=== PATIENT | female | born 1975 | race Caucasian/White ===

== ENCOUNTER 2016-08-09 12:18 | Emergency (ER) | payer MEDICAID ==
[2016-08-09 12:37] VITALS: BP 122/94; PULSE 103; RESP 16; TEMP 99.3; O2SAT 94
[2016-08-09] MEDS ORDERED: DEXAMETHASONE 4 MG TAB PO ONE (12:50)
[2016-08-09] MEDS ORDERED: OXYMETAZOLINE 30 ML NASAL SPRAY EACHNARE ONE (12:50)
--- NOTE | 2016-08-09 12:53 | EDPHY ---
H & P Stated Complaint: cough-productive,sinus pressure ,st,bilat ear pain,denies fever Time Seen by Provider: 08/09/16 12:47 HPI/ROS: CHIEF COMPLAINT: Sinus congestion, sore throat HISTORY OF PRESENT ILLNESS: The patient is a 41-year-old healthy female from the rehab center with several of her friends who are also ill with similar symptoms. She complains of a sore throat, sinus congestion. She has not had fevers or shortness of breath. Dry cough. No GI symptoms. No significant past medical history. REVIEW OF SYSTEMS: Constitutional: denies: chills, fever, recent illness, recent injury EENTM: See HPI Respiratory: See HPI Cardiac: denies: chest pain, irregular heart rate, lightheadedness, palpitations Gastrointestinal/Abdominal: denies: abdominal pain, diarrhea, nausea, vomiting, blood streaked stools Genitourinary: denies: dysuria, frequency, hematuria, pain Musculoskeletal: denies: joint pain, muscle pain Skin: denies: lesions, rash, jaundice, bruising Neurological: denies: headache, numbness, paresthesia, tingling, dizziness, weakness Hematologic/Lymphatic: denies: blood clots, easy bleeding, easy bruising Immunologic/allergic: denies: HIV/AIDS, transplant EXAM: GENERAL: Well-appearing, well-nourished and in no acute distress. HEAD: Atraumatic, normocephalic. EYES: Pupils equal round and reactive to light, extraocular movements intact, sclera anicteric, conjunctiva are normal. ENT: TMs normal, nares patent, oropharynx with minimal erythema without exudates. Moist mucous membranes. NECK: Normal range of motion, supple without lymphadenopathy or JVD. LUNGS: Breath sounds clear to auscultation bilaterally and equal. No wheezes rales or rhonchi. HEART: Regular rate and rhythm without murmurs, rubs or gallops. ABDOMEN: Soft, nontender, normoactive bowel sounds. No guarding, no rebound. No masses appreciated. BACK: No CVA tenderness, no spinal tenderness, step-offs or deformities EXTREMITIES: Normal range of motion, no pitting or edema. No clubbing or cyanosis. NEUROLOGICAL: Cranial nerves II through XII grossly intact. Normal speech, normal gait. 5/5 strength, normal movement in all extremities, normal sensation PSYCH: Normal mood, normal affect. SKIN: Warm, dry, normal turgor, no visible rashes or lesions. Source: Patient Exam Limitations: No limitations - Personal History LMP (Females 10-55): IUD In Place - Medical/Surgical History Hx Asthma: No Hx Chronic Respiratory Disease: No Hx Diabetes: No Hx Cardiac Disease: No Hx Renal Disease: No Hx Cirrhosis: No Hx Alcoholism: No Hx HIV/AIDS: No Hx Splenectomy or Spleen Trauma: No Other PMH: Med hx-anxiety/depression. [id number] inguinal - Family History Significant Family History: No pertinent family hx - Social History Smoking Status: Heavy smoker Alcohol Use: Sober Drug Use: None Constitutional: Initial Vital Signs Temperature (C) 37.4 C 08/09/16 12:32 Heart Rate 103 H 08/09/16 12:32 Respiratory Rate 16 08/09/16 12:32 Blood Pressure 122/94 H 08/09/16 12:32 O2 Sat (%) 94 08/09/16 12:32 O2 Delivery Mode Room Air Allergies/Adverse Reactions: No Known Allergies Allergy (Verified 08/09/16 12:31) Home Medications: Medication Instructions Recorded Claritin 08/09/16 Clonidine 08/09/16 Gabapentin 08/09/16 Paxil 08/09/16 Trazodone HCl 08/09/16 Medical Decision Making ED Course/Re-evaluation: The patient symptoms are consistent with a viral upper respiratory tract infection. I will treat her with decongestants and steroids for symptom relief. We discussed follow-up and indications for returning. She is happy with this and declines further workup or testing. Differential Diagnosis: Partial list of the Differential diagnosis considered include but were not limited to; viral URI, sinusitis, otitis media, strep throat, influenza and although unlikely based on the history and physical exam, I also considered meningitis, sepsis. I discussed these differential diagnoses and the plan with the patient as well as the usual and expected course. The patient understands that the diagnosis is provisional and that in medicine we are not always correct and that further workup is often warranted. Usual and customary warnings were given. All of the patient's questions were answered. The patient was instructed to return to the emergency department should the symptoms at all worsen or return, otherwise to followup with the physician as we discussed. - Data Points Medications Given: Discontinued Medications Dexamethasone (Decadron) 10 mg PO EDNOW ONE Stop: 08/09/16 12:51 Last Admin: 08/09/16 12:57 Dose: 10 mg Oxymetazoline HCl (Afrin Nasal [place]) 2 sprays EACHNARE EDNOW ONE Stop: 08/09/16 12:51 Last Admin: 08/09/16 13:02 Dose: Not Given Departure - Departure Disposition: Home, Routine, Self-Care Clinical Impression: Upper respiratory tract infection Qualifiers: URI type: unspecified viral URI Qualified Code(s): J06.9 - Acute upper respiratory infection, unspecified Condition: Fair Instructions: Upper Respiratory Infection (ED) Referrals: Armando Upton MD [Medical Doctor] - As per Instructions
== END 2016-08-09 12:58 | disposition home or self-care (01) ==
LOC: CED 12:18
DX: J06.9 Acute upper respiratory infection, unspecified (principal); F17.200 Nicotine dependence, unspecified, uncomplicated

== ENCOUNTER 2017-02-28 09:28 | Inpatient (IN) | payer MEDICAID ==
--- NOTE | 2017-02-28 10:02 | EDPHY ---
H & P Stated Complaint: States left 3rd finger erythema,swelling and warmth since yesterday. Time Seen by Provider: 02/28/17 09:34 HPI/ROS: Chief Complaint: Left hand pain HPI: 42-year-old woman presenting complaining of pain in her left middle finger and hand since yesterday. Patient has noticed significant swelling warmth and tenderness last night. She has a history of IV drug abuse but has been clean for several months. 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 She denies any fevers or chills. No lightheadedness. No nausea or vomiting. ROS: 10 point Review of Systems is negative except as noted in the HPI. PMH: Chronic pain, IV drug use, MRSA bacteremia Social History: Former IV drug use Family History: non-contributory Physical Exam: Gen: Awake, Alert, No Distress HEENT: Nose: no rhinorrhea Eyes: PERRLA, EOMI Mouth: Moist mucosa Neck: Supple, no JVD Chest: nontender, lungs clear to auscultation Heart: S1, S2 normal, no murmur Abd: Soft, non-tender, no guarding Back: no CVA tenderness, no midline tenderness Ext: Left hand: She has got significant swelling of her proximal left middle finger. It is held in flexion. She has pain with passive extension. She also has pain along the flexor tendon sheath. Finger is erythematous with streaking up the palm of her hand. Skin: Per hand exam Neuro: CN II-XII intact, Sensation grossly intact, Strength 5/5 in bilateral upper and lower extremities - Personal History LMP (Females 10-55): IUD In Place Current Tetanus Diphtheria and Acellular Pertussis (TDAP): Unsure - Medical/Surgical History Hx Asthma: No Hx Chronic Respiratory Disease: No Hx Diabetes: No Hx Cardiac Disease: No Hx Renal Disease: No Hx Cirrhosis: No Hx Alcoholism: No Hx HIV/AIDS: No Hx Splenectomy or Spleen Trauma: No Other PMH: Med hx-anxiety/depression,seasonal allergies. [id number] inguinal - Social History Smoking Status: Heavy smoker Constitutional: Initial Vital Signs Temperature (C) 36.9 C 02/28/17 09:36 Heart Rate 94 02/28/17 09:36 Respiratory Rate 16 02/28/17 09:36 Blood Pressure 129/95 H 02/28/17 09:36 O2 Sat (%) 97 02/28/17 09:36 O2 Delivery Mode Room Air Allergies/Adverse Reactions: No Known Allergies Allergy (Verified 02/28/17 09:34) Home Medications: Medication Instructions Recorded Claritin 08/09/16 Clonidine 08/09/16 Gabapentin 08/09/16 Paxil 08/09/16 Trazodone HCl 08/09/16 Medical Decision Making Procedures: Procedure note: Femoral vein vena puncture for blood draw Indication: Poor IV access requiring a PICC line but no blood. Patient was prepped with chlorhexidine. Under sterile technique including drape, sterile gloves the femoral artery was palpated. An 18 gauge needle was directed just medial to the femoral artery. Venous blood which was nonpulsatile was aspirated , total of 35 mL. Needle was removed and pressure was held. A sterile dressing was placed. Patient tolerated the procedure well. There were no complications. Procedure was performed by myself. ED Course/Re-evaluation: 42-year-old woman with flexor tenosynovitis. She has all 4 of Knaval signs. I have discussed with Dr. Natanael Javire, hand surgeon. He will see the patient in the hospital. He does not want any antibiotics until he can get definitive cultures done. Patient will be admitted to the hospitalist service. I have paged the hospitalist awaiting the call. Discussed with hospitalist Fauzia Ramires, patient will be admitted under Dr. Gandhi. Departure - Departure Disposition: [facility] Acute Clinical Impression: Flexor tenosynovitis of finger Condition: Fair
[2017-02-28 12:01] LABS: ANION GAP 16 mEq/L (8-16); CALCIUM 9.2 mg/dL (8.5-10.4); CARBON DIOXIDE 21 mEq/l (22-31); CHLORIDE 103 mEq/L (97-110); CREATININE 0.4 mg/dL (0.6-1.0); GLOMERULAR FILTRATION RATE > 60; GLUCOSE 109 mg/dL (70-100); SODIUM 140 mEq/L (134-144)
[2017-02-28 12:02] LABS: POTASSIUM 4.4 mEq/L (3.5-5.2)
[2017-02-28 12:11] LABS: BILIRUBIN,TOTAL 0.8 mg/dL (0.1-1.4); BILIRUBIN-CONJUGATED 0.5 mg/dL (0.0-0.5); BILIRUBIN-UNCONJUGATED 0.3 mg/dL (0.0-1.1); TOTAL PROTEIN 6.8 g/dL (6.3-8.2)
[2017-02-28 12:15] LABS: % IMMATURE GRANULYOCYTES 0.3 % (0.0-1.1); ABSOLUTE IMMATURE GRANULOCYTES 0.04 10^3/uL (0.00-0.10); ADD DIFF? NO; ADD MORPH? NO; ADD SCAN? NO; ATYPICAL LYMPHOCYTE FLAG 0 (0-99); FRAGMENT RBC FLAG 0 (0-99); HEMATOCRIT 38.4 % (38.0-47.0); HEMOGLOBIN 12.7 g/dL (12.6-16.3); LEFT SHIFT FLG 0 (0-99); LIPEMIA HEMOLYSIS FLAG 80 (0-99); MEAN CELL HEMOGLOBIN 26.2 pg (27.9-34.1); MEAN CELL HEMOGLOBIN CONCENTR. 33.1 g/dL (32.4-36.7); MEAN CELL VOLUME 79.2 fL (81.5-99.8); MEAN PLATELET VOLUME 9.9 fL (8.7-11.7); PLATELET CLUMPS FLAG 0 (0-99); PLATELET COUNT 312 10^3/uL (150-400); RED BLOOD CELL COUNT 4.85 10^6/uL (4.18-5.33); RED CELL DISTRIBUTION WIDTH 13.7 % (11.5-15.2)
[2017-02-28 12:31] LABS: ALANINE AMINOTRANSFERASE 59 IU/L (9-52); ALBUMIN 3.6 g/dL (3.5-5.0); ALKALINE PHOSPHATASE 96 IU/L (38-126); ANION GAP 15 mEq/L (8-16); ASPARTATE AMINOTRANSFERASE 59 IU/L (14-46); BILIRUBIN,TOTAL 0.5 mg/dL (0.1-1.4); BILIRUBIN-CONJUGATED 0.2 mg/dL (0.0-0.5); BILIRUBIN-UNCONJUGATED 0.3 mg/dL (0.0-1.1); CALCIUM 9.2 mg/dL (8.5-10.4); CARBON DIOXIDE 25 mEq/l (22-31); CHLORIDE 100 mEq/L (97-110); CREATININE 0.5 mg/dL (0.6-1.0); GLOMERULAR FILTRATION RATE > 60; GLUCOSE 104 mg/dL (70-100); POTASSIUM 4.1 mEq/L (3.5-5.2); SODIUM 140 mEq/L (134-144); TOTAL PROTEIN 6.4 g/dL (6.3-8.2)
[2017-02-28] MEDS ORDERED: ONDANSETRON DISINTEGRATING 4 MG TAB PO PRN (14:06)
[2017-02-28] MEDS ORDERED: IBUPROFEN 200 MG TAB PO PRN (14:06)
[2017-02-28] MEDS ORDERED: ONDANSETRON 4 MG/2 ML VIAL IVP PRN ×2 (14:06→17:36)
[2017-02-28] MEDS ORDERED: ALTEPLASE 2 MG VIAL IVP PRN ×2 (14:11→15:07)
--- NOTE | 2017-02-28 14:44 | GHP ---
[f rep st] HISTORY AND PHYSICAL DATE OF ADMISSION: 02/28/2017 CHIEF COMPLAINT: Left hand pain. HISTORY OF PRESENT ILLNESS: The patient is a 42-year-old female, presenting to the [facility] with complaints of left middle finger and hand pain since 1 day prior. The patient states that she noted significant swelling and warmth last evening and it became progressively worse upon awaken ing today. She has a history of IV drug abuse and she is currently in a rehabilitation detox program . She states that she has been clean for several months. She has a history of MRSA bacteremia and s trep infection of her cervical spine. She denies any fevers, sweats or chills. She denies any dizzi ness, lightheadedness or shortness of breath. She denies any nausea, vomiting, diarrhea. She denies any other complaints other than this left handed pain with tenderness and swelling. REVIEW OF SYSTEMS: A comprehensive 10-point review of systems is negative, other than noted in the H PI. PAST MEDICAL HISTORY: Chronic pain, IV drug abuse, MRSA bacteremia, strep infection of her cervical spine, seizure disorder. SOCIAL HISTORY: The patient is in a drug rehabilitation program, should avoid benzodiazepines as wel l as narcotics. She states she does not use any drugs, alcohol. The patient is a heavy tobacco user . FAMILY HISTORY: Reviewed and noncontributory. PHYSICAL EXAMINATION: GENERAL: The patient is alert. VITAL SIGNS: Afebrile at 37.2, pulse is 100, respiratory rate is 18, blood pressure is 136/91. She is saturating 95% on room air. I have seen a nd evaluated the patient. HEENT: Normocephalic, atraumatic. Mucosal membranes are moist. There ar e multiple scabs across the patient's face. NECK: Supple with no JVD noted. LUNGS: Clear to auscu ltation bilaterally. There are no rhonchi or wheezes noted. CARDIOVASCULAR: Regular rate and rhythm . No gallop or murmur appreciated. ABDOMEN: Bowel sounds are positive. Soft and nontender. There is no guarding or rigidity noted. BACK: Without CVA tenderness. No midline tenderness. EXTREMITI ES: Left hand has significant swelling of her proximal left middle finger. She has pain with passiv e extension. She has pain along the flexor tendon sheath. All other extremities are within normal l imits with no clubbing or cyanosis appreciated. SKIN: Without rashes. She has multiple areas of sc abbing over the entire body. NEUROLOGICAL: The patient is grossly intact. She has 5/5 strength tete aterally upper and lower extremities. PAST SURGICAL HISTORY: Left inguinal hernia repair. ALLERGIES: None. HOME MEDICATIONS: Clonidine, gabapentin, Paxil, trazodone. LABORATORY EVALUATION: White count of 14. ASSESSMENT AND PLAN: The patient is a 42-year-old female with complaints of left hand pain. 1. Left hand infection. The patient has potentially flexor tenosynovitis. She will be consulted on by Dr. Natanael Javier of Surgery. I anticipate the patient may be taken for surgical intervention. She has been notified of this. Antibiotics have been held until further cultures can be obtained. Denise mayorga cultures are pending. 2. Pain. I have ordered Toradol for the patient at this time as she is in a drug rehabilitation pro gram that does not allow her to take benzodiazepines or narcotics. We will continue to assist in thi s process and attempt to avoid these medications unless absolutely necessary. 3. History of IV drug abuse. The patient has a history of MRSA as well as a strep spine infection. I have ordered her a PICC line at this time as IV access is unable to be obtained. 4. History of seizure disorder. I suspect this is secondary to the patient's drug use and potential withdrawal. She is on gabapentin and has not had seizures for several years she states. 5. Deep venous thrombosis prophylaxis. She is low risk for this and will be held prior to surgical intervention. 6. Disposition. The patient will be admitted to inpatient status given need for surgical interventi on and likely IV antibiotic therapy. Changes in the patient's status will be done as needed througho ut the patient's hospital course. /[id number]/MODL
[2017-02-28] MEDS ORDERED: BUPIVACAINE 0.25% 30 ML SDV ONE (15:13)
[2017-02-28] MEDS ORDERED: BACITRACIN 50,000 UNITS/10 ML SYR IRR ONE (15:13)
[2017-02-28] MEDS ORDERED: LR 1,000 ML IV ONE (15:14)
[2017-02-28] MEDS ORDERED: LIDOCAINE 1% 2 ML INJ ID PRN (15:14)
[2017-02-28] MEDS ORDERED: MIDAZOLAM 2 MG/2 ML VIAL ONE (16:31)
[2017-02-28] MEDS: VANCOMYCIN HCL/NORMAL SALINE 250 ML IV SCH (16:32)
[2017-02-28] MEDS ORDERED: PROPOFOL 200 MG/20 ML VIAL ONE (16:32)
[2017-02-28] MEDS ORDERED: fentaNYL 100 MCG/2 ML INJ ONE ×3 (16:32→17:38)
--- NOTE | 2017-02-28 16:40 | PDANEPAE ---
ANE History of Present Illness left hand 3rd digit infection; h/o IVDA ANE Past Medical History - Cardiovascular History Hx Hypertension: No Hx Arrhythmias: No Hx Chest Pain: No Hx Coronary Artery / Peripheral Vascular Disease: No Hx CHF / Valvular Disease: No Hx Palpitations: No - Pulmonary History Hx COPD: No Hx Asthma/Reactive Airway Disease: No Hx Recent Upper Respiratory Infection: No Hx Oxygen in Use at Home: No Hx Sleep Apnea: No - Endocrine History Hx Diabetes: No Obesity: no - Neurological & Psychiatric Hx Hx Neurological and Psychiatric Disorders: Yes ANE Review of Systems Review of systems is: negative Review of Systems: - Exercise capacity Exercise capacity: >=4 METS ANE Patient History - Allergies Allergies/Adverse Reactions: No Known Allergies Allergy (Verified 02/28/17 09:34) - Home Medications Home medications: home medication list seen and reviewed Home Medications: Acetaminophen [Tylenol 325mg (*)] 650 mg PO BID PRN 02/28/17 [Last Taken ] Gabapentin [Neurontin] 600 mg PO TID 02/28/17 [Last Taken 02/28/17 07:00] Ibuprofen [Motrin (*)] 800 mg PO TID PRN 02/28/17 [Last Taken 02/28/17 07:00] Loratadine [Claritin 10 mg] 10 mg PO DAILY 02/28/17 [Last Taken 02/28/17 07:00] Multivitamins [Multivitamin (*)] 1 each PO DAILY 02/28/17 [Last Taken 02/28/17 07:00] PARoxetine HCL [Paxil 30mg (*)] 30 mg PO HS 02/28/17 [Last Taken 02/27/17] Rizatriptan Benzoate [Maxalt] 5 mg PO DAILY PRN 02/28/17 [Last Taken 02/24/17] clonIDINE [Catapres (*)] 0.1 mg PO TID PRN 02/28/17 [Last Taken 02/27/17] traZODone [traZODone 150MG (*)] 150 mg PO HS 02/28/17 [Last Taken 02/27/17] - Anes Hx Anes Hx: no prior problems - Smoking Hx Smoking Status: Heavy smoker ANE Labs/Vital Signs - Labs Result Diagrams: 02/28/17 12:03 02/28/17 12:03 - Vital Signs Blood Pressure: 164/98 Heart Rate: 66 Respiratory Rate: 18 O2 Sat (%): 96 Height: 157.48 cm Weight: 49.895 kg ANE Physical Exam - Airway Neck exam: FROM Mallampati Score: Class 1 Mouth exam: normal dental/mouth exam - Pulmonary Pulmonary: no respiratory distress - Cardiovascular Cardiovascular: regular rate and rhythym - ASA Status ASA Status: II ANE Anesthesia Plan Anesthesia Plan: GA w LMA
[2017-02-28] MEDS ORDERED: MIDAZOLAM 2 MG/2 ML VIAL IVP ONE (16:42)
[2017-02-28] MEDS ORDERED: LIDOCAINE 2% 5 ML SDV ONE (16:44)
[2017-02-28] MEDS ORDERED: ONDANSETRON 4 MG/2 ML VIAL ONE (16:44)
[2017-02-28] MEDS ORDERED: DEXAMETHASONE 4 MG/ML VIAL ONE (16:44)
--- NOTE | 2017-02-28 17:04 | SOAPPROG ---
SOAP Progress Note Assessment/Plan: Assessment: Plan: 02/28/17 17:02 Significant dactylitis with 4 knavel signs left long finger. Plan for urgent I + D. I halted IV ABX in preop in effort to obtain reliable cultures in OR. Will restart IV Vanco after cultures taken. JGR Objective: Vital Signs Temp Pulse Resp BP Pulse Ox 37.8 C 66 18 164/98 H 96 02/28/17 16:20 02/28/17 16:40 02/28/17 16:40 02/28/17 16:40 02/28/17 16:40 Laboratory Results 02/28/17 12:03 02/28/17 12:03 ICD10 Worksheet Patient Problems: Problems Problem Status Onset Flexor tenosynovitis of finger Acute
[2017-02-28] MEDS ORDERED: ALBUTEROL 3 ML DEYVIAL IH PRN (17:36)
[2017-02-28] MEDS ORDERED: ACETAMINOPHEN 500 MG TAB PO PRN (17:36)
[2017-02-28] MEDS ORDERED: HYDROmorphONE/DILAUDID 1 MG/ML INJ IVP PRN (17:36)
[2017-02-28] MEDS ORDERED: DEXAMETHASONE 4 MG/ML VIAL IVP PRN (17:36)
[2017-02-28] MEDS ORDERED: fentaNYL 100 MCG/2 ML INJ IVP PRN ×2 (17:36→17:42)
[2017-02-28] MEDS ORDERED: NALOXONE HCL 0.4 MG/ML INJ IVP PRN (17:36)
[2017-02-28] MEDS ORDERED: OXYCODONE/APAP 5/325 TAB PO PRN (17:36)
[2017-02-28] MEDS ORDERED: HYDROCODONE/APAP 5/325 TAB PO PRN (17:36)
[2017-02-28] MEDS ORDERED: LR 500 ML IV PRN (17:36)
[2017-02-28] MEDS ORDERED: KETOROLAC 30 MG/1 ML SDV ONE (17:49)
--- NOTE | 2017-02-28 18:15 | POSTANESTH ---
Post Anesthetic Evaluation Cardiovascular Status: Normal, Stable Respiratory Status: Normal, Stable Level of Consciousness/Mental Status: Can Participate in Eval Pain Control: Adequate, Prn Tx Ordered Nausea/Vomiting Control: Adequate, Prn Tx Ordered Complications Possibly Related to Anesthesia: None Noted
--- NOTE | 2017-02-28 18:25 | POSTOPPROG ---
Post Op Note Date of Operation: 02/28/17 Surgeon: Natanael Javier Surveillance Systems Engineer: None Anesthesia: LMA Pre-op Diagnosis: Septic flexor tendon tenosynovitis Left III Post-op Diagnosis: Same plus infection up to carpal tunnel Procedure: I + D finger flexor sheath and palm and carpal tunnel Inf/Abcess present in the surg proc area at time of surgery?: Yes Depth: Deep Incisional (Fascial) EBL: Minimal Drains: Other
--- NOTE | 2017-02-28 18:28 | SOAPPROG ---
SOAP Progress Note Assessment/Plan: Assessment: Post op Plan:IV abx Change dressing on Saturday am and pull drain then. 02/28/17 17:02 02/28/17 18:26 02/28/17 18:28 Objective: Vital Signs Temp Pulse Resp BP Pulse Ox 37.8 C 66 18 164/98 H 96 02/28/17 16:20 02/28/17 16:40 02/28/17 16:40 02/28/17 16:40 02/28/17 16:40 Laboratory Results 02/28/17 12:03 02/28/17 12:03 Thick yellow creamy puss encountered throughout Left long finger flexor sheath up to mid palm and through carpal tunnel. Drain left in. ICD10 Worksheet Patient Problems: Problems Problem Status Onset Flexor tenosynovitis of finger Acute
[2017-02-28] MEDS: ACETAMINOPHEN 325 MG TAB PO PRN (20:08)
[2017-02-28] MEDS ORDERED: IBUPROFEN 800 MG TAB PO PRN (20:49)
[2017-02-28] MEDS ORDERED: RIZATRIPTAN BENZOATE 5 MG PO PRN (20:49)
[2017-02-28] MEDS ORDERED: ACETAMINOPHEN 325 MG TAB PO PRN (20:49)
[2017-02-28] MEDS: GABAPENTIN 300 MG CAP PO SCH (21:16)
--- NOTE | 2017-02-28 21:20 | GCON ---
[f rep st] CONSULTATION INFECTIOUS DISEASE CONSULTATION. DATE OF CONSULTATION: 02/28/2017 REASON FOR CONSULTATION: Left hand cellulitis and tenosynovitis. HISTORY OF PRESENT ILLNESS: 42-year-old woman, left hand dominant, with a past medical history of IV drug use complicated by MRSA endocarditis earlier this year, unknown valve, and a more remote history of group A strep infection of her neck requiring debridement. She was in her usual state of health until approximately 1 day ago when she started noticing increased swelling of her left hand that became progressively more painful and red and she presented to the emergency room for further evaluation. She denies specific injury to this hand and does not inject IVD in her hands. Patient was found to have a markedly swollen hand with difficulty in flexing her middle finger with concerns of tenosynovitis. Blood cultures were obtained and white count was elevated. Orthopedic hand surgeon was consulted and plans debridement later this afternoon. Patient has been in a drug rehab program and was clean for 10 months until recently when she resumed use of IV heroin and methadone. She was using up to the time of admission. Patient desires that this not be disclosed to her family or the drug rehab program. REVIEW OF SYSTEMS: A complete 10-point review of systems was performed and is negative except as mentioned in the HPI. Specifically, patient denies fevers and chills. She did describe some left scapular pain. PAST MEDICAL HISTORY: 1. Polysubstance abuse including IVDU 2. 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 Received 6 weeks IV antibiotics. 3. Strep infection of her cervical spine, status post debridement approximately 3-4 years ago. Received 8 weeks IV antibiotics 4. Seizure disorder. SOCIAL HISTORY: She is participating in a drug rehab program. Drugs of choice meth and heroine. She buys clean needles at drug store. She smokes cigarettes. Reports negative HIV and hep C screens in the past. Heavy tobacco use. She moved to [place] in June 2016. She is working at [employer]. FAMILY HISTORY: Reviewed and noncontributory. ALLERGIES: NKDA. MEDICATIONS: Claritin 10 mg daily, gabapentin 600 mg 3 times daily, Paxil 30 mg daily, trazodone 150 mg daily, multivitamin once daily, clonidine 0.1 three times daily as needed, Tylenol as needed, and ibuprofen as needed for pain. PHYSICAL EXAM: VITAL SIGNS: Blood pressure 136/91, heart rate is 89-100, respiratory rate 18, saturation 95% on room air, temperature 37.2. GENERAL: This is a pleasant woman sitting in bed. She is somewhat tearful. HEENT: No conjunctival hemorrhages. Oropharynx: Fair dentition. Moist mucous membranes. NECK: Supple. No lymphadenopathy. CARDIOVASCULAR: Regular rate and rhythm. No murmur was detected; borderline tachycardia. CHEST: Clear to auscultation bilaterally. ABDOMEN: Soft, nontender. Bowel sounds are present. EXTREMITIES : No clubbing, cyanosis, or edema of LE. She has a marked erythema and edema of her entire left hand, most prominent on her middle finger with significant limited range of motion and tenderness to palpation. Erythema was creeping up her medial wrist. No crepitus was detected. Pulses were 2+. No associated axillary lymphadenopathy. NEUROLOGICALLY: She is alert and oriented x4. Moving all 4 extremities equally. PSYCH: She was cooperative, sad affect associated with discussion regarding her break in abstinence. LABORATORY: White count 14,000, hematocrit 38, platelets of 317. Creatinine 0.5, AST 59, ALT 59, alkaline phosphatase 96, albumin 3.6, total bilirubin 0.5. Blood cultures were collected and are pending. IMAGING: None performed. ASSESSMENT AND PLAN: 42-year-old woman with a history of IV drug use, who has had multiple infectious complications related to IV drug use, now presents with left hand cellulitis and tenosynovitis of the 3rd left digit. She is left-hand dominant. No residual cardiac murmur noted today or peripheral stigmata of endocarditis. 1. Discussion regarding importance of abstinence from IV drug use and this being her 3rd complication from IV drug use. Agreed that we will not disclose her IV drug use to her family or her drug rehab program (c/w HIPPA!). 2. Screen HIV, hepatitis C, hepatitis B. 3. Start vancomycin 1 g IV q.12 with a history of MRSA. This will also cover streptococcal infection, which is also within the differential. 4. Appreciate ortho consult. 5. Monitor scapular pain Thank you for this consultation. We will continue to follow on a daily basis. Time 55 min >50% time spent with education and counseling regarding IVDU, plans for treating her severe L hand infection and potential need for prolonged hospitalization. /[id number]/MODL MTDD
--- NOTE | 2017-02-28 21:50 | GCON ---
[f rep st] CONSULTATION CHIEF COMPLAINT: Left hand pain, swelling, and redness. HISTORY OF PRESENT ILLNESS: Patient is a 42-year-old, left-hand dominant female who presented the [facility] ER with increased pain, swelling, and redness that started in the left middle finger and has spread throughout her hand for the last day. She notes that the symptoms are progressively getting worse. She does have a history of IV drug abuse and is currently in a rehab center with a detox program. S he also has a history of MRSA bacteremia and the strep infection of her cervical spine. At this time , she denies any fever, chills, nausea, vomiting, diarrhea. She denies any other orthopedic complain ts. She was transferred to [facility]. PAST MEDICAL HISTORY: Chronic pain, IV drug use, MRSA bacteremia, strep infection of the cervical sp ine, and seizure disorder. PAST SURGICAL HISTORY: She was operated on her cervical spine for the strep infection. MEDICATIONS: Clonidine, gabapentin, Paxil, trazodone, Claritin. ALLERGIES: No known drug allergies. FAMILY HISTORY: Noncontributory. REVIEW OF SYSTEMS: A 10-point review was done. Negative for any other complaints, concerns, or hist ory. PHYSICAL EXAMINATION: VITALS: Afebrile. Vital signs are stable. GENERAL: Pleasant, NAD. HEENT: NC/AT. EOMI. PERRLA. Ears and nares patent without discharge. Oropharynx is clear. NECK: Nonte nder to palpation, full range of motion. MUSCULOSKELETAL: Exam of the left hand, there is significa nt swelling and erythema over the left middle finger, extending throughout the dorsum of the hand. S he does have pain with passive extension and flexion of the fingers. She has pain to palpation along the 3rd/middle finger flexor tendon sheath. Normal sensation to light touch in the left upper extre mity. is present in the left upper extremity. SKIN: Warm, dry, and intact in the left u pper extremity. NEUROLOGIC: Nonfocal. No deficits noted. PSYCHIATRIC: Alert and oriented x3. Ap propriate mood and affect. IMPRESSION: Left middle finger/3rd flexor tenosynovitis. PLAN: The patient was seen and examined, and it was discussed with the patient that she would requir e surgery, which would include an irrigation and debridement of the left 3rd/middle finger flexor ten don sheath, to be done by Dr. Javier today, 02/28/2017. All the risks, benefits, complications were exp lained to the patient and consent was obtained. The consent was placed in the patient's chart. Anti biotics will be held until cultures are taken by Dr. Javier in the OR. All questions were answered to the patient's satisfaction. /[id number]/MODL
[2017-03-01] MEDS: VANCOMYCIN HCL/NORMAL SALINE 250 ML IV SCH ×2 (03:33→15:50)
--- NOTE | 2017-03-01 04:27 | GOP ---
[f rep st] OPERATIVE REPORT DATE OF OPERATION: 02/28/2017 SURGEON: Natanael Javier MD PREOPERATIVE DIAGNOSIS: Flexor tenosynovitis, left long finger. POSTOPERATIVE DIAGNOSIS: 1. Flexor tendon tenosynovitis, left long finger. 2. Mid palmar bursal infection, left palm. 3. Continuous infection into the carpal tunnel, left wrist. PROCEDURE PERFORMED: FINDINGS: I initially started washing out her finger, which the flexor tendon sheath was filled with thick pus. There was much greater pus proximally than there was distally. When I moved proximal to the flexor tendon sheath, there was still pus along the long finger flexor tendons. I opened the mi d palm and found additional pus in the mid palmar space that was exclusively surrounding the long fin abimbola flexor tendons and not the adjacent index finger or ring finger. There was continued pus proxima l to the mid palm. As such, I opened the antebrachial fascia in the distal forearm and connected all 4 of these wounds. There was no pus identified proximal to the wrist flexion crease but there was t hick creamy pus within the carpal tunnel, predominantly surrounding the long finger profundus flexor tendon. INDICATIONS: The patient is a 42-year-old woman with a history of MRSA infections in the past with a lso a history of IV drug use. She has been in a treatment facility and in a longterm house setting re cently. She developed swelling and pain in her finger and was seen at the [facility] earlier today where th larry identified suppurative flexor tenosynovitis. She is brought to the operating room for an I and D procedure. DESCRIPTION OF PROCEDURE: After routinely checking the patient's identification and consent and the successful induction of LMA general anesthetic, the patient's left upper extremity was prepped and dr aped in usual standard fashion. I exsanguinated the limb loosely with an Esmarch wrap and used eleva tion to further exsanguinate the limb. A pneumatic tourniquet previously placed about the proximal l eft arm was inflated to 250 mmHg. An oblique incision in the palmar flexion crease of the long finge r MP joint was carried sharply through the skin. It was spread bluntly through the subcutaneous laye r and dissected down to the level of the A1 mil. With A1 mil exposed, I incised this with thic k purulent fluid identified that was creamy yellow in color. I immediately sent this for cultures in cluding Gram stain. The patient was then restarted on the vancomycin that had been stopped in preop hold immediately prior to her surgery. I dissected distally into the flexor tendon sheath. I then o pened the flexor tendon sheath distally at the DIP flexion crease with a transverse incision. With t his opened, I was able to connect the 2 with a pediatric feeding tube and irrigate between the 2, pul ling the feeding tube back at 10 mm intervals. Initially I had all the drainage coming from the dist al wound and in the middle the drainage was coming from both the distal and proximal wound and then u ltimately just at the proximal wound. As much as there was pus identified proximally, I then opened the mid palmar space with a longitudinal incision in the thenar flexion crease just distal to the tra nsverse carpal ligament. I dissected sharply through skin and then bluntly through the subcutaneous layer. I identified the superficial palmar arch and the decussation of the median nerve. I dissecte d down to the long finger, index finger and ring finger flexor tendons. There was a halo of thickene d synovial tissue around the long finger. When I opened this, there was the same thick creamy yellow pus identified. I evacuated this and then debrided and then passed the feeding tube from the mid pa lmar wound to the distal palmar wound and performed a similar procedure where I pulled the pediatric feeding tube back with thorough irrigation until it ran clear. I dissected proximal to the mid myers r space, identified pus within the carpal tunnel. I consequently made a transverse incision in the w rist flexion crease, dissecting sharply through the skin and bluntly through the subcutaneous layer. I dissected down to the level of the antebrachial fascia and then incised this longitudinally. Iden tified pus distally but not proximal to this location. I again passed the feeding tube in a similar fashion as previously and irrigated this thoroughly. I then passed the feeding tube leaving loop fro m the most proximal wound to most distal wound, leaving loops out of the skin at the 2 intermediate w ounds. I loosely sutured these wounds closed and left the feeding tube in place to act for egress fo r continued drainage. The wound was cleansed and 0.25% Marcaine plus epinephrine were infiltrated in the carpal tunnel for postoperative comfort and also as a digital block for postoperative comfort. A sterile bulky dressing was applied and the patient was reversed from anesthetic and extubated in th e operating room. She was transferred to the recovery room in excellent condition. She tolerated th e procedure well. There were no complications. /[id number]/MODL
--- NOTE | 2017-03-01 06:57 | SOAPPROG ---
SOAP Progress Note Assessment/Plan: Assessment/Plan: L hand III finger tenosynovitis, palmar and carpal tunnel abscess s/p I&D of L III flexor tendon sheath, palm and carpal tunnel -Cont abx, Vanco, as ordered, cultures pending -Cont current pain management, encourage PO as tolerated -Cont to encourage ice and elevation -Limited use of L hand -Drain and dressings in place, will change dressing and d/c drain morning of 03/02/2017 -Will likely need abx mangement on d/c, CM to follow 03/01/17 06:54 Subjective: Pt seen at bedside, awoken for exam. She denies any significant pain at this time. She states she is tolerating her diet and medications well. She denies any valle, sob, cp, f/c/n/v, abd pain, post calf pain bilat, or any new onset n/t. We have discussed leaving the dressing in place, drain intact, with likely dressing change and drain d/c tomorrow morning. She has no additional concerns or complaints at this time. Objective: Vital Signs Temp Pulse Resp BP Pulse Ox 36.6 C 68 16 116/64 91 L 03/01/17 04:06 03/01/17 04:06 03/01/17 04:06 03/01/17 04:06 03/01/17 04:06 Microbiology 02/28/17 17:24 Gram Stain - Final Other - Eswab 02/28/17 17:24 Mycobacterial Smear (PALOMA) - Final Other - Eswab Mycobacterial Culture - Final Laboratory Results 02/28/17 12:03 02/28/17 12:03 02/28/17 03/01/17 03/02/17 05:59 05:59 05:59 Intake Total 530 Output Total 705 Balance -175 Pt seen at bedside, A&Ox3, appropriate mood and affect. Pleasant and cooperative with exam. VSS, afebrile. Exam of the LUE reveals intact post operative dressings, clean and dry. No surrounding erythema, calor, discharge or induration noted. Forearm compartment are supple. Elbow exam is benign, full ROM noted. Upper arm compartments are supple. Post calves NTTP, no palpable vascular cords, neg Lonny's bilat. DNVI BLE. ICD10 Worksheet Patient Problems: Problems Problem Status Onset Flexor tenosynovitis of finger Acute
[2017-03-01 08:02] LABS: PHENCYCLIDINE URINE BCH < 6 ng/ml (NEGATIVE); PHENCYCLIDINE URINE BCH NEGATIVE (NEGATIVE); TETRAHYDROCANNABINOL URINE < 5 ng/mL (NEGATIVE); TETRAHYDROCANNABINOL URINE NEGATIVE (NEGATIVE)
[2017-03-01] MEDS: KETOROLAC 30 MG/1 ML SDV IVP PRN ×3 (08:36→22:09)
[2017-03-01] MEDS: GABAPENTIN 300 MG CAP PO SCH ×3 (08:36→21:57)
[2017-03-01] MEDS: MULTIVITAMINS 1 EACH TAB PO SCH (08:37)
[2017-03-01] MEDS: CETIRIZINE 10 MG TAB PO SCH (08:37)
[2017-03-01 08:53] LABS: % IMMATURE GRANULYOCYTES 1.2 % (0.0-1.1); ABSOLUTE IMMATURE GRANULOCYTES 0.14 10^3/uL (0.00-0.10); ADD DIFF? NO; ADD MORPH? NO; ADD SCAN? NO; ATYPICAL LYMPHOCYTE FLAG 0 (0-99); FRAGMENT RBC FLAG 0 (0-99); LEFT SHIFT FLG 0 (0-99); LIPEMIA HEMOLYSIS FLAG 80 (0-99); MEAN CELL HEMOGLOBIN 26.3 pg (27.9-34.1); MEAN CELL HEMOGLOBIN CONCENTR. 32.4 g/dL (32.4-36.7); MEAN PLATELET VOLUME 10.3 fL (8.7-11.7); PLATELET CLUMPS FLAG 10 (0-99); PLATELET COUNT 284 10^3/uL (150-400); RED BLOOD CELL COUNT 4.57 10^6/uL (4.18-5.33); RED CELL DISTRIBUTION WIDTH 14.3 % (11.5-15.2)
[2017-03-01 09:31] LABS: ALANINE AMINOTRANSFERASE 56 IU/L (9-52); ALBUMIN 3.2 g/dL (3.5-5.0); ALKALINE PHOSPHATASE 81 IU/L (38-126); ANION GAP 8 mEq/L (8-16); ASPARTATE AMINOTRANSFERASE 40 IU/L (14-46); BILIRUBIN,TOTAL 0.4 mg/dL (0.1-1.4); CALCIUM 9.1 mg/dL (8.5-10.4); CARBON DIOXIDE 28 mEq/l (22-31); CHLORIDE 107 mEq/L (97-110); CREATININE 0.5 mg/dL (0.6-1.0); GLOMERULAR FILTRATION RATE > 60; GLUCOSE 122 mg/dL (70-100); POTASSIUM 4.4 mEq/L (3.5-5.2); SODIUM 143 mEq/L (134-144); TOTAL PROTEIN 5.9 g/dL (6.3-8.2)
--- NOTE | 2017-03-01 10:44 | PCMIDPN ---
Assessment/Plan: 1. Left hand cellulitis/palmar abscess with tenosynovitis status post washout: I called the microbiology lab. They are concerned about the presence of gram- negative rods. Will add Ertapenem pending ID/speciation. Spoke with patient about how she uses needles. She states that her needles are always clean, but admits to using spit to clean blood off the needles when she misses the vein, and uses spit to clean off the missed injection site. She also admits to me that she injected black tar heroin into her left hand. She is very tearful about this, and understands that it is important for her to disclose this to her providers while she is in the hospital. She gave me permission to inform , so that he could help manage her withdrawal symptoms. For now, she is diaphoretic, but no diarrhea or vomiting. She repeated to me that she does not want her parents or drug rehabilitation facility (she would not disclose which drug rehabilitation facility) to know if her relapse. 2. Miscellaneous: Patient informed that hepatitis-C antibody and HIV testing negative. Hepatitis B surface antibody pending, surface antigen negative. Also of note, she cannot recall her last tetanus booster, therefore will administer Tdap in right arm today. She prefers a flu vaccine prior to discharge. (She will most likely be going to a snf facility to complete treatment). Subjective: Long conversation with patient today about drug use. Primary surgical dressing still in place in her left hand. Operative note read. I did call the microbiology lab. They are concerned about the presence of gram-negative rods. Patient cannot recall her last tetanus booster and has not received a flu vaccine this year. She was uncomfortable disclosing to me which drug rehabilitation program she is involved with here in [place]. She states that her parents are paying for this. Objective: Vancomycin 1 g IV q.12 hours day 1 Afebrile Vital Signs Temp Pulse Resp BP Pulse Ox 36.7 C 66 16 111/69 92 03/01/17 07:24 03/01/17 07:24 03/01/17 07:24 03/01/17 07:24 03/01/17 07:24 Microbiology 02/28/17 17:24 Gram Stain - Final Other - Eswab 02/28/17 17:24 Mycobacterial Smear (PALOMA) - Final Other - Eswab Mycobacterial Culture - Final Laboratory Results 03/01/17 08:45 03/01/17 08:45 02/28/17 03/01/17 03/02/17 05:59 05:59 05:59 Intake Total 530 Output Total 705 Balance -175 Blood cultures x2 are pending Hand cultures with 2+ PMNs, culture pending. - Physical Exam General Appearance: alert, no apparent distress EENT: other (Multiple scabbed areas on her face where the patient has picked herself.) Respiratory: lungs clear Cardiac/Chest: regular rate, rhythm, No systolic murmur Extremities: other (Left hand/forearm with primary surgical dressing in place. I did not take this down.) Abdomen: non-tender, soft Skin: other (Facial scabs as outlined above with the patient has picked herself. No other obvious abscesses, or sites of infection visible.) ICD10 Worksheet Patient Problems: Problems Problem Status Onset Flexor tenosynovitis of finger Acute
[2017-03-01] MEDS ORDERED: TDAP ADULT 0.5 ML INJ (BOOSTRIX) IM ONE (11:00)
--- NOTE | 2017-03-01 11:10 | PDMN ---
Medical Necessity Medical necessity: est los>2mn for L hand septic flexor tendon tenosynovitis; requires surgical intervention, follow cx's for abx choice; hx MRSA bacteremia , cervical spine strep infection, IV drug abuse currently in rehab program, sz disorder; per order and H&P 02/28/17
[2017-03-01] MEDS: ERTAPENEM 1 GM VIAL IVP SCH (11:16)
[2017-03-01] MEDS ORDERED: diphenhydrAMINE 50 MG CAP PO PRN (14:21)
--- NOTE | 2017-03-01 16:38 | ASMTCMCOM ---
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 Pt uses IV drugs so is not safe to d/c to the community. Chart review indicates pt is in a drug rehabilitation program paid for by parents (at this time unknown which program), is a person diagnosed w depression and anxiety, is new to [employer] and works at [employer]. Spoke w pt about d/c options (father was present w pt permission) and pt seems hesitant to commit to 30 day SNF stay but will consider it. CM will follow up with pt tomorrow. Medicaid SNF will require ULTC and unknown if [facility] will approve a Medicaid SNF solely for IV antibiotic need, pt has no therapy ordered. D/c plan of care: TBD based off how long pt requires IV antibiotics, willingness to commit to 30 day SNF, and if [facility] approves Medicaid SNF. Date Signed: 03/01/2017 04:38 PM Electronically Signed By:NAVEEN Collins
--- NOTE | 2017-03-01 17:46 | HOSPPROG ---
Hospitalist Progress Note Assessment/Plan: Assessment: 42-year-old female presents with acute tenosynovitis and bacteremia in the setting of active IV drug use Plan: 1. Tenosynovitis. Acute, new problem this provider, further workup indicated. Located in the left 3rd digit with underlying abscess in the carpal tunnel -postop day [address] Javier, appreciate ongoing surgical care -treat pain with IV Toradol, avoid opiates and benzodiazepines given patient's rehab conditions -Gram stain currently demonstrating white blood cells, continue to monitor culture -continue monitor white blood cell count -discussed with Dr. Lian Cates, we will add Invanz given that the lab reports there is possible gram-negative harmeet and patient reports that she likes her needles, also continue IV vancomycin given her history of staph and strep -patient requires extended course of IV antibiotics, discussed this with patient , she is amenable to going to a half-way facility so that she is able to be in a monitored setting while she receives IV antibiotics, and she is able to avoid IV drug use, discussed with case management 2. Bacteremia. Contacted by lab the patient has Gram-positive cocci in blood cultures from presentation, will monitor for speciation and sensitivity -timing of repeat cultures per Infectious Disease -will get a transthoracic echocardiogram 3. IV drug use and acute opiate withdrawal. Patient has requested that no outside parties received information regarding her recent IV drug use and relapse, and we will adhere to this per HIPAA -the patient has disclose that she has recently used drugs intravenously and she has begun to experience acute opiate withdrawal, including sweats and anxiety -provide as needed Benadryl, Tylenol, clonidine -CIWA score is inappropriate for opiate withdrawal, avoid benzodiazepines as the patient is not permitted to use opiates or benzodiazepines per her contract with her outpatient drug rehab program -HIV test and hep C test negative Diet. Regular Prophylaxis. Low risk, SCDs Code. Full Disposition. Anticipated discharge is uncertain, pending negative cultures and further workup as outlined above. High complexity patient, high risk of worsening morbidity and/or mortality from the issues as outlined above. Subjective: Patient reports pain in left upper extremity is tolerable Objective: Vital Signs Temp Pulse Resp BP Pulse Ox 36.8 C 87 18 139/76 H 91 L 03/01/17 15:54 03/01/17 15:54 03/01/17 15:54 03/01/17 15:54 03/01/17 15:54 Microbiology 02/28/17 17:24 Gram Stain - Final Other - Eswab 02/28/17 17:24 Mycobacterial Smear (PALOMA) - Final Other - Eswab Mycobacterial Culture - Final Laboratory Results 03/01/17 08:45 03/01/17 08:45 02/28/17 03/01/17 03/02/17 05:59 05:59 05:59 Intake Total 530 Output Total 705 Balance -175 - Physical Exam Constitutional: no apparent distress, chronically ill appearing, uncomfortable, unkempt Cardiovascular: regular rate and rhythym, systolic murmur (1/6 at sternum and apex), No irregularly irregular, No tachycardia, No edema Respiratory: no respiratory distress, no rales or rhonchi, clear to auscultation Gastrointestinal: normoactive bowel sounds, soft, non-tender abdomen, no palpable masses, No distension Skin: other (Left hand wrapped, left thumb without any erythema) Neurologic: AAOx3, sensation intact bilaterally, No weakness (Motor 5/5 left thumb) Psychiatric: not anxious, not encephalopathic, flat affect, No agitated ICD10 Worksheet Patient Problems: Problems Problem Status Onset Flexor tenosynovitis of finger Acute
[2017-03-02] MEDS: VANCOMYCIN HCL/NORMAL SALINE 250 ML IV SCH ×2 (03:33→17:09)
[2017-03-02 04:56] LABS: % IMMATURE GRANULYOCYTES 0.3 % (0.0-1.1); ABSOLUTE IMMATURE GRANULOCYTES 0.03 10^3/uL (0.00-0.10); ADD DIFF? NO; ADD MORPH? NO; ADD SCAN? NO; ATYPICAL LYMPHOCYTE FLAG 0 (0-99); FRAGMENT RBC FLAG 0 (0-99); HEMATOCRIT 35.3 % (38.0-47.0); HEMOGLOBIN 11.2 g/dL (12.6-16.3); LEFT SHIFT FLG 0 (0-99); LIPEMIA HEMOLYSIS FLAG 80 (0-99); MEAN CELL HEMOGLOBIN 26.4 pg (27.9-34.1); MEAN CELL HEMOGLOBIN CONCENTR. 31.7 g/dL (32.4-36.7); MEAN CELL VOLUME 83.3 fL (81.5-99.8); MEAN PLATELET VOLUME 10.6 fL (8.7-11.7); PLATELET CLUMPS FLAG 10 (0-99); PLATELET COUNT 253 10^3/uL (150-400); RED BLOOD CELL COUNT 4.24 10^6/uL (4.18-5.33); RED CELL DISTRIBUTION WIDTH 14.5 % (11.5-15.2)
[2017-03-02 05:19] LABS: ANION GAP 9 mEq/L (8-16); CALCIUM 8.5 mg/dL (8.5-10.4); CARBON DIOXIDE 27 mEq/l (22-31); CHLORIDE 111 mEq/L (97-110); CREATININE 0.7 mg/dL (0.6-1.0); GLOMERULAR FILTRATION RATE > 60; GLUCOSE 96 mg/dL (70-100); POTASSIUM 3.7 mEq/L (3.5-5.2); SODIUM 147 mEq/L (134-144)
[2017-03-02] MEDS: KETOROLAC 30 MG/1 ML SDV IVP PRN (05:32)
--- NOTE | 2017-03-02 09:11 | HOSPPROG ---
Hospitalist Progress Note Assessment/Plan: # L 3rd finger tenosynovitis s/p I&D with infection to carpal tunnel - she had injected heroin into this hand recently - haemophilus parainfluenza from operative cx - cont abx per ID, invanz and vanc for now # BCx+ with coag-neg staph - suspect contaminant but would be covered by vanc # recent IVDU - requests that this be kept private, not shared with family or rehab facility - no severe w/d, cont clonidine, add robaxin prn for myalgias # KIM - (SCr from 0.4 to 0.7) stop NSAIDs for now, encourage PO, recheck tomorrow # hypernatremia - encourage free H2O intake Subjective: eating well; pain in hand mproving; c/o sweats and myalgias Objective: Vital Signs Temp Pulse Resp BP Pulse Ox 36.8 C 81 16 108/66 92 03/02/17 07:33 03/02/17 07:33 03/02/17 07:33 03/02/17 07:33 03/02/17 07:33 Microbiology 02/28/17 12:03 Blood Panel (PCR) - Final Blood Staph Coagulase Negative 02/28/17 17:24 Gram Stain - Final Other - Eswab 02/28/17 17:24 Mycobacterial Smear (PALOMA) - Final Other - Eswab Mycobacterial Culture - Final Laboratory Results 03/02/17 04:43 03/02/17 04:43 03/01/17 03/02/17 03/03/17 05:59 05:59 05:59 Intake Total 530 300 Output Total 705 300 Balance -175 0 chart reviewed - Physical Exam Constitutional: no apparent distress, appears nourished Cardiovascular: regular rate and rhythym, no murmur, rub, or gallop Respiratory: no respiratory distress, no rales or rhonchi, clear to auscultation Gastrointestinal: normoactive bowel sounds, soft, non-tender abdomen, no palpable masses Musculoskeletal: other (L hand in gauze) ICD10 Worksheet Patient Problems: Problems Problem Status Onset Flexor tenosynovitis of finger Acute
[2017-03-02] MEDS: ERTAPENEM 1 GM VIAL IVP SCH (09:54)
[2017-03-02] MEDS: CETIRIZINE 10 MG TAB PO SCH (09:55)
[2017-03-02] MEDS: MULTIVITAMINS 1 EACH TAB PO SCH (09:58)
[2017-03-02] MEDS: GABAPENTIN 300 MG CAP PO SCH ×3 (10:01→22:05)
--- NOTE | 2017-03-02 10:11 | SOAPPROG ---
SOAP Progress Note Assessment/Plan: Assessment: Improving Plan:IV abx Begin PT for aggressive hand rehab. 02/28/17 17:02 02/28/17 18:26 02/28/17 18:28 03/02/17 10:10 Subjective: Less pain today Objective: Vital Signs Temp Pulse Resp BP Pulse Ox 36.8 C 81 16 108/66 92 03/02/17 07:33 03/02/17 07:33 03/02/17 07:33 03/02/17 07:33 03/02/17 07:33 Microbiology 02/28/17 12:03 Blood Panel (PCR) - Final Blood Staph Coagulase Negative 02/28/17 17:24 Gram Stain - Final Other - Eswab 02/28/17 17:24 Mycobacterial Smear (PALOMA) - Final Other - Eswab Mycobacterial Culture - Final Laboratory Results 03/02/17 04:43 03/02/17 04:43 03/01/17 03/02/17 03/03/17 05:59 05:59 05:59 Intake Total 530 300 Output Total 705 300 Balance -175 0 Left hand: Swelling reduced. Able to F/E all digits slightly. Erythema is reduced. I pulled drains today. CSM intact all finger tips. ICD10 Worksheet Patient Problems: Problems Problem Status Onset Flexor tenosynovitis of finger Acute
--- NOTE | 2017-03-02 12:26 | PCMIDPN ---
Assessment/Plan: 1. Left hand cellulitis/palmar abscess with tenosynovitis status post washout: So far, culture is growing h. parainfluenza, consistent with her history of using saliva during injection practices. Will allow cultures to mature before final antibiotic decisions are made. That being said, there is a chance she can be treated with an oral quinolone, such as Moxifloxacin (for its additional anaerobic activity) moving forward, as a PICC line is suboptimal in this patient for obvious reasons. 2. Miscellaneous: Tetanus booster given yesterday. Will administer flu vaccine before discharge. Hepatitis-B surface antibody pending, other tests are negative. 3. Blood culture with gram-positive cocci in clusters: This is a contaminant with coagulase-negative Staph. Subjective: Her father is present in the room. Asked him to step out. The patient then disclosed to me that she had told her father that she relapsed. Tearful today, but overall feeling better. The drain in her hand was removed. Objective: Vancomycin 1 g IV 12 hr day 2 Ertapenem 1 g IV daily day 2 Afebrile Vital Signs Temp Pulse Resp BP Pulse Ox 37.1 C 79 16 135/77 H 93 03/02/17 11:23 03/02/17 11:23 03/02/17 11:23 03/02/17 11:23 03/02/17 11:23 Microbiology 02/28/17 12:03 Blood Panel (PCR) - Final Blood Staph Coagulase Negative 02/28/17 17:24 Gram Stain - Final Other - Eswab 02/28/17 17:24 Mycobacterial Smear (AP[facility]OMA) - Final Other - Eswab Mycobacterial Culture - Final Laboratory Results 03/02/17 04:43 03/02/17 04:43 03/01/17 03/02/17 03/03/17 05:59 05:59 05:59 Intake Total 530 300 Output Total 705 300 Balance -175 0 Blood cultures with 1/4 bottles coagulase-negative Staph Hand cultures are growing H. parainfluenza - Physical Exam General Appearance: alert, no apparent distress Extremities: other (Left hand with significant overall swelling, but minimal cellulitic component. No active drainage from 3 separate small incisions.) Skin: No embolic lesions ICD10 Worksheet Patient Problems: Problems Problem Status Onset Flexor tenosynovitis of finger Acute
--- NOTE | 2017-03-02 13:50 | ASMTCMCOM ---
CM Note CM Note Notes: Cultures need to mature and according to ID MD Cates there is a chance pt can d/c on oral antibiotics. D/c plan of care: TBD based on final antibiotic need. If can d/c on orals then can d/c to community and if IV antibiotics then CM needs to start Medicaid SNF process. Date Signed: 03/02/2017 01:49 PM Electronically Signed By:NAVEEN Collins
[2017-03-02 15:22] LABS: HEPATITIS Bs Ab QUANT <5.0 mIU/mL
--- NOTE | 2017-03-02 16:26 | ASMTCMCOM ---
CM Note CM Note Notes: Pt has signed release for [facility] , RN Lainey states [facility] needs a call prior to d/c as they are assessing if pt can return due to relapse. CM to follow. Date Signed: 03/02/2017 04:26 PM Electronically Signed By:NAVEEN Collins
[2017-03-02] MEDS: ACETAMINOPHEN 325 MG TAB PO PRN (22:05)
[2017-03-02] MEDS: METHOCARBAMOL 750 MG TAB PO PRN (22:05)
[2017-03-03] MEDS: VANCOMYCIN HCL/NORMAL SALINE 250 ML IV SCH (03:34)
[2017-03-03 04:01] LABS: % IMMATURE GRANULYOCYTES 0.4 % (0.0-1.1); ABSOLUTE IMMATURE GRANULOCYTES 0.03 10^3/uL (0.00-0.10); ADD DIFF? NO; ADD MORPH? NO; ADD SCAN? NO; ATYPICAL LYMPHOCYTE FLAG 10 (0-99); FRAGMENT RBC FLAG 0 (0-99); HEMATOCRIT 36.9 % (38.0-47.0); HEMOGLOBIN 11.9 g/dL (12.6-16.3); LEFT SHIFT FLG 0 (0-99); LIPEMIA HEMOLYSIS FLAG 80 (0-99); MEAN CELL HEMOGLOBIN 26.4 pg (27.9-34.1); MEAN CELL HEMOGLOBIN CONCENTR. 32.2 g/dL (32.4-36.7); PLATELET CLUMPS FLAG 0 (0-99); PLATELET COUNT 250 10^3/uL (150-400); RED CELL DISTRIBUTION WIDTH 14.6 % (11.5-15.2)
[2017-03-03 04:07] LABS: ANION GAP 7 mEq/L (8-16); CALCIUM 8.5 mg/dL (8.5-10.4); CARBON DIOXIDE 28 mEq/l (22-31); CHLORIDE 110 mEq/L (97-110); CREATININE 0.7 mg/dL (0.6-1.0); GLOMERULAR FILTRATION RATE > 60; GLUCOSE 87 mg/dL (70-100); POTASSIUM 4.1 mEq/L (3.5-5.2); SODIUM 145 mEq/L (134-144)
--- NOTE | 2017-03-03 08:49 | HOSPPROG ---
Hospitalist Progress Note Assessment/Plan: # L 3rd finger tenosynovitis s/p I&D with infection to carpal tunnel - she had injected heroin into this hand recently - haemophilus parainfluenza from operative cx - cont abx per ID, invanz and vanc for now - would prefer apap for pain control rather than narcotics or nsaids # BCx+ with coag-neg staph - likely contaminant # recent IVDU - she initially requesteed this be kept quiet, but has now informed her father - no severe w/d, cont clonidine, add robaxin prn for myalgias # KIM - (SCr from 0.4 to 0.7) stop NSAIDs for now, encourage PO, recheck tomorrow # hypernatremia - better today - encourage free H2O intake Subjective: complains of hand pain Objective: Vital Signs Temp Pulse Resp BP Pulse Ox 37.1 C 80 16 163/85 H 90 L 03/03/17 07:22 03/03/17 07:22 03/03/17 07:22 03/03/17 07:22 03/03/17 07:22 Microbiology 02/28/17 17:24 Gram Stain - Final Other - Eswab 02/28/17 17:24 Mycobacterial Smear (PALOMA) - Final Other - Eswab Mycobacterial Culture - Final 02/28/17 12:03 Blood Panel (PCR) - Final Blood Staph Coagulase Negative Laboratory Results 03/03/17 03:30 03/03/17 03:30 03/02/17 03/03/17 03/04/17 05:59 05:59 05:59 Intake Total 300 865 Output Total 300 250 Balance 0 615 - Physical Exam Constitutional: no apparent distress, appears nourished Cardiovascular: regular rate and rhythym, no murmur, rub, or gallop Respiratory: no respiratory distress, no rales or rhonchi, clear to auscultation Gastrointestinal: normoactive bowel sounds, soft, non-tender abdomen, no palpable masses Musculoskeletal: other (L hand wrapped in gauze) ICD10 Worksheet Patient Problems: Problems Problem Status Onset Flexor tenosynovitis of finger Acute
[2017-03-03] MEDS: CETIRIZINE 10 MG TAB PO SCH (09:14)
[2017-03-03] MEDS: ERTAPENEM 1 GM VIAL IVP SCH (09:14)
[2017-03-03] MEDS: GABAPENTIN 300 MG CAP PO SCH ×3 (09:14→21:02)
[2017-03-03] MEDS: MULTIVITAMINS 1 EACH TAB PO SCH (09:14)
[2017-03-03] MEDS: ACETAMINOPHEN 500 MG TAB PO PRN ×2 (09:27→17:14)
--- NOTE | 2017-03-03 10:51 | PCMIDPN ---
Assessment/Plan: 1. Left hand cellulitis/palmar abscess with tenosynovitis status post washout: Cultures only show H. parainfluenza with no evidence of Staph aureus or streptococci. Will discontinue vancomycin and continue ertapenem alone. As per my prior note, when she is ready for discharge can likely transition to oral quinolone (consider moxifloxacin given its additional anaerobic activity). Do not want keep PICC line in as outlined previously. 2. Miscellaneous: Hepatitis-B surface antibody negative, but patient believes she has been tested in the past. Will give booster today and will need hepatitis-B surface antibody checked in a month to ensure response. Received Tdap. Also needs flu vaccine prior to discharge. 3. Blood culture with gram-positive cocci in clusters: This is a contaminant with coagulase-negative Staph. Subjective: In good spirits. Has stopped picking her face. Withdrawal symptoms under control. No diarrhea. Hand is still quite swollen, but overall starting to feel better. Objective: Vancomycin 1 g IV q.12 hours day 3 Ertapenem 1 g daily day 3 T-max 37.2degrees Vital Signs Temp Pulse Resp BP Pulse Ox 37.1 C 80 16 140/82 H 90 L 03/03/17 07:22 03/03/17 07:22 03/03/17 07:22 03/03/17 09:20 03/03/17 07:22 Microbiology 02/28/17 17:24 Gram Stain - Final Other - Eswab 02/28/17 17:24 Mycobacterial Smear (PALOMA) - Final Other - Eswab Mycobacterial Culture - Final 02/28/17 12:03 Blood Panel (PCR) - Final Blood Staph Coagulase Negative Laboratory Results 03/03/17 03:30 03/03/17 03:30 03/02/17 03/03/17 03/04/17 05:59 05:59 05:59 Intake Total 300 865 Output Total 300 250 Balance 0 615 Hand cultures with H. parainfluenza Blood culture with 1/4 bottles coagulase-negative Staphylococcus Hepatitis-B surface antibody negative - Physical Exam General Appearance: alert, no apparent distress EENT: No thrush Respiratory: lungs clear Extremities: other (Left hand is still quite swollen, but no obvious cellulitic component. 3 sutured incisions are well drainage. She is able to flex and extend her wrist, but still has difficulty making a fist given swelling. No tingling or numbness.) ICD10 Worksheet Patient Problems: Problems Problem Status Onset Flexor tenosynovitis of finger Acute
[2017-03-03] MEDS ORDERED: HEPATITIS B VIRUS VACCINE-PF 20 MCG/ML VIAL IM ONE (11:00)
--- NOTE | 2017-03-03 11:17 | SOAPPROG ---
SOAP Progress Note Assessment/Plan: Assessment/Plan: L hand III finger tenosynovitis, palmar and carpal tunnel abscess s/p I&D of L III flexor tendon sheath, palm and carpal tunnel, POD#3 -Cont abx per ID as ordered, cultures reveal H. influenza -Cont current pain management, encourage PO as tolerated -Cont to encourage ice and elevation -Cont PT/OT, encourage ROM -Drain removed yesterday -D/c dependent on ID abx recommendation, disp, f/u w/ Dr. Javier 10-14 days post operatively 03/03/17 11:15 Subjective: Pt seen at bedside. She denies any significant pain at this time, though nurses report max of 5/10. She states she is tolerating her diet and medications well. She denies any valle, sob, cp, f/c/n/v, abd pain, post calf pain bilat, or any new onset n/t. We have discussed follow up. She has no additional concerns or complaints at this time. Objective: Vital Signs Temp Pulse Resp BP Pulse Ox 37.1 C 80 16 140/82 H 90 L 03/03/17 07:22 03/03/17 07:22 03/03/17 07:22 03/03/17 09:20 03/03/17 07:22 Microbiology 02/28/17 17:24 Gram Stain - Final Other - Eswab 02/28/17 17:24 Mycobacterial Smear (PALOMA) - Final Other - Eswab Mycobacterial Culture - Final 02/28/17 12:03 Blood Panel (PCR) - Final Blood Staph Coagulase Negative Laboratory Results 03/03/17 03:30 03/03/17 03:30 03/02/17 03/03/17 03/04/17 05:59 05:59 05:59 Intake Total 300 865 Output Total 300 250 Balance 0 615 Pt seen at bedside, A&Ox3, appropriate mood and affect. Pleasant and cooperative with exam. VSS, afebrile. Exam of the LUE reveals intact dressings , clean and dry. Intact sutures are noted, surgical incision sites appear to be healing well with no surrounding erythema, calor, discharge or induration noted. Forearm compartment are supple. Elbow exam is benign, full ROM noted. Upper arm compartments are supple. Pt is limited in light composite fist formation, but is able to flex and ext wrist w/out significant pain. Post calves NTTP, no palpable vascular cords, neg Lonny's bilat. DNVI BLE. ICD10 Worksheet Patient Problems: Problems Problem Status Onset Flexor tenosynovitis of finger Acute
[2017-03-03] MEDS ORDERED: BISACODYL 10 MG SUPP PR PRN (11:20)
[2017-03-03] MEDS ORDERED: POLYETHYLENE GLYCOL 3350 17 GM PKT PO PRN (11:20)
[2017-03-03] MEDS ORDERED: LACTULOSE 20 GM/30 ML UDCUP PO PRN (11:20)
[2017-03-03] MEDS ORDERED: MAGNESIUM HYDROXIDE 30 ML UDCUP PO PRN (11:20)
[2017-03-03] MEDS: METHOCARBAMOL 750 MG TAB PO PRN (21:01)
[2017-03-03] MEDS: SENNOSIDES/DOCUSATE SODIUM TAB PO SCH (21:01)
[2017-03-04 04:24] LABS: ANION GAP 10 mEq/L (8-16); CALCIUM 8.3 mg/dL (8.5-10.4); CARBON DIOXIDE 27 mEq/l (22-31); CHLORIDE 109 mEq/L (97-110); CREATININE 0.6 mg/dL (0.6-1.0); GLOMERULAR FILTRATION RATE > 60; GLUCOSE 92 mg/dL (70-100); POTASSIUM 4.1 mEq/L (3.5-5.2); SODIUM 146 mEq/L (134-144)
--- NOTE | 2017-03-04 07:12 | SOAPPROG ---
SOAP Progress Note Assessment/Plan: Assessment/Plan: L hand III finger tenosynovitis, palmar and carpal tunnel abscess s/p I&D of L III flexor tendon sheath, palm and carpal tunnel, POD#4 -Cont abx per ID as ordered, cultures reveal H. influenza -Cont current pain management, encourage PO as tolerated -Cont to encourage ice and elevation -Cont PT/OT, encourage ROM -Drain removed yesterday -D/c dependent on dietitian consultant ID approval and medicine approval, ID abx recommendation, and CM placement -f/u w/ Dr. Javier 10-14 days post operatively 03/04/17 07:11 Subjective: Pt seen at bedside, awoken for exam. She denies any significant pain at this time. She states she is tolerating her diet and medications well. She denies any valle, sob, cp, f/c/n/v, abd pain, post calf pain bilat, or any new onset n/t. We have discussed follow up. She has no additional concerns or complaints at this time. We have discussed d/c disposition, and pt states she has not yet formed a preference. Will cont to follow. Objective: Vital Signs Temp Pulse Resp BP Pulse Ox 37.3 C 81 17 167/83 H 90 L 03/04/17 04:00 03/04/17 04:00 03/04/17 04:00 03/04/17 04:00 03/04/17 04:00 Microbiology 02/28/17 12:03 Blood Panel (PCR) - Final Blood Staph Coagulase Negative 02/28/17 17:24 Gram Stain - Final Other - Eswab Laboratory Results 03/03/17 03:30 03/04/17 03:55 03/03/17 03/04/17 03/05/17 05:59 05:59 05:59 Intake Total 865 650 Output Total 250 800 Balance 615 -150 Pt seen at bedside, awoken for exam, A&Ox3, appropriate mood and affect. Pleasant and cooperative with exam. VSS, afebrile. Exam of the LUE reveals CDI dressings. Intact sutures are noted, surgical incision sites are healing well with no surrounding erythema, calor, discharge or induration noted. Forearm compartment are supple. Elbow exam is benign, full ROM noted. Upper arm compartments supple. Pt is limited in light composite fist formation, but is able to flex and ext wrist w/out significant pain. Post calves NTTP, no palpable vascular cords, neg Lonny's bilat. DNVI BLE. ICD10 Worksheet Patient Problems: Problems Problem Status Onset Flexor tenosynovitis of finger Acute
[2017-03-04] MEDS: GABAPENTIN 300 MG CAP PO SCH ×3 (11:33→21:49)
[2017-03-04] MEDS: SENNOSIDES/DOCUSATE SODIUM TAB PO SCH ×2 (11:33→21:58)
[2017-03-04] MEDS: MULTIVITAMINS 1 EACH TAB PO SCH (11:34)
[2017-03-04] MEDS: CETIRIZINE 10 MG TAB PO SCH (11:34)
[2017-03-04] MEDS: ERTAPENEM 1 GM VIAL IVP SCH (11:35)
--- NOTE | 2017-03-04 14:51 | HOSPPROG ---
Hospitalist Progress Note Assessment/Plan: # L 3rd finger tenosynovitis s/p I&D with infection extending to carpal tunnel - she had injected heroin into this hand recently - haemophilus parainfluenza from operative cx - cont abx per ID, invanz - pain control with NSAIDs and APAP # BCx+ with coag-neg staph - likely contaminant # recent IVDU - she initially requested this be kept quiet, but has now informed her father - no severe w/d, cont clonidine, add robaxin prn for myalgias # KIM - better today; safe for toradol # hypernatremia - D5W x 1 L today Subjective: better ROM of fingers today; still painful Objective: Vital Signs Temp Pulse Resp BP Pulse Ox 36.4 C 95 18 118/88 H 98 03/04/17 11:15 03/04/17 11:15 03/04/17 11:15 03/04/17 11:15 03/04/17 11:15 Microbiology 02/28/17 17:24 Gram Stain - Final Other - Eswab 02/28/17 12:03 Blood Panel (PCR) - Final Blood Staph Coagulase Negative Laboratory Results 03/03/17 03:30 03/04/17 03:55 03/03/17 03/04/17 03/05/17 05:59 05:59 05:59 Intake Total 865 650 500 Output Total 250 800 Balance 615 -150 500 L hand edematous, no significant erythema; sutures in palm - Physical Exam Constitutional: no apparent distress, appears nourished Eyes: anicteric sclera Ears, Nose, Mouth, Throat: hearing normal Cardiovascular: No edema Genitourinary: No gomez in urethra Skin: warm, normal color Neurologic: AAOx3 Psychiatric: interacting appropriately ICD10 Worksheet Patient Problems: Problems Problem Status Onset Flexor tenosynovitis of finger Acute
[2017-03-04] MEDS ORDERED: D5W 1,000 ML IV SCH (15:00)
[2017-03-04] MEDS: KETOROLAC 15 MG/1 ML SDV IVP PRN (16:01)
--- NOTE | 2017-03-04 16:30 | ASMTCMCOM ---
CM Note CM Note Notes: Spoke with Dr. West with [facility]. Dr. West has spoken with patient's parents who are willing to help patient return to her rehab program. However, patient's therapist has to visit and determine if patient herself is ready to recommit. The current d/c plan is for patient to return to [facility] to restart her rehab program from the relapse. Kailey will contact me after she has completed her assessment to confirm. CM will follow. Date Signed: 03/04/2017 04:29 PM Electronically Signed By:Nadia Dempsey LCSW
--- NOTE | 2017-03-04 16:41 | ECHO ---
[email or web address] [address] [address] Main: [phone] Fax: Transthoracic Echocardiogram Name: YANN GIRALDO MR#: [id number] Study Date: 03/02/2017 Study Time: 10:15 AM Date of : 1975 Age: 42 year(s) Height: 157.5 cm (62 in.) Weight: 49.9 kg (110 lb.) BSA: 1.48 m2 Gender: Female Examination: Echo Indication: Image Quality: Adequate Contrast: Requested by: Jabier Dominguez BP: / Heart Rate: Rhythm: Indication: Procedure Staff Ragman: Rabia Flores Reading Physician: Jabier Dunbar Requesting Provider: Conclusions: Normal size left ventricle. No LV hypertrophy. Normal global systolic LV function. EF is 60 %. No regional wall motion abnormality. There is no mitral valve regurgitation. There is no aortic valve regurgitation. Trivial tricuspid valve regurgitation. Right side pleural effusion. Measurements: Chambers Valvular Assessment AV/MV Valvular Assessment TV/PV Normal Normal Normal Name Value Range Name Value Range Name Value Range IVSd (2D): 0.9 cm (0.6 cm-1.1 AV meanP mmHg ( - ) PV Vmax: 0.78 m/s (0.6 m/s-0.9 cm) LVOT Vmax: 0.89 m/s (0.7 m/s-1.1 m/s) LVDd (2D): 4.1 cm (3.9 cm-5.3 m/s) PV PGmax: 2 mmHg ( - ) cm) MV E Vmax: 0.70 m/s ( - ) LVDs (2D): 2.7 cm (2.1 cm-4 MV A Vmax: 0.76 m/s ( - ) cm) MV E/A: 0.92 ( - ) LVPWd (2D): 0.9 cm ( - ) MV meanP mmHg ( - ) LVEF (BP): 60 % (>=55 %) Continued Measurements: Chambers Valvular Assessment AV/MV Name Value Name Value LADs Lon.4 cm MV DecTime: 203 m/s LA Area: 8.5 cm2 MV E/E' Septal: 6.60 Patient: YANN GIRALDO Study Date: 03/02/2017 Page 1 of 2 10:15 AM TAPSE: 1.4 cm MV E/E' Lateral: 5.80 MV VTI: 19.30 cm Findings: Left Ventricle: Normal size left ventricle. No LV hypertrophy. Normal global systolic LV function. EF is 60 %. No regional wall motion abnormality. Normal diastolic LV function. Right Ventricle: Normal size right ventricle. Normal RV function. Left Atrium: The left atrium is normal in size. Right Atrium: The right atrium is normal in size. Mitral Valve: The mitral valve is normal in appearance and function. There is no mitral valve regurgitation. No mitral stenosis is present. There is no mitral valve vegetation. Aortic Valve: The aortic valve is normal in appearance and function. There is no aortic valve regurgitation. No aortic valve stenosis is present. There is no aortic valve vegetation. Tricuspid Valve: The tricuspid valve is normal in appearance and function. Trivial tricuspid valve regurgitation. No tricuspid valve vegetation. Pulmonic Valve: Pulmonary valve not well visualized. There is no pulmonic regurgitation seen. IVC: Normal size and course of the IVC. Pericardium: No pericardial effusion. Right side pleural effusion. (No Signature Object) Patient: YANN GIRALDO Study Date: 03/02/2017 Page 2 of 2 10:15 AM [id number]
--- NOTE | 2017-03-04 18:09 | PCMIDPN ---
Assessment/Plan: Assessment/Plan: * Left hand cellulitis/palmar abscess with flexor tenosynovitis status post incision and drainage: Clinically improving post incision and drainage. Operative culture showing growth of Haemophilus parainfluenza. No other organisms noted to date. Will narrow ertapenem to Unasyn based on this finding. Likely can transition to oral therapy in next 24-48 hours if continues to show clinical improvement. See Dr. Cates's note of 03/03/2017 outlining consideration for moxifloxacin. * Vaccine: Status post hepatitis B booster yesterday. Plan flu vaccine prior to discharge. * Positive blood cultures: 1/2 sets with coagulase-negative Staph consistent with contamination. 03/04/17 18:05 Subjective: Patient with persistent but decreased left hand pain. Some improved range of motion of fingers but still significant limitation in full flexion. Objective: Vital Signs Temp Pulse Resp BP Pulse Ox 36.8 C 76 16 116/87 H 94 03/04/17 15:49 03/04/17 15:49 03/04/17 15:49 03/04/17 16:52 03/04/17 15:49 Microbiology 02/28/17 12:03 Blood Panel (PCR) - Final Blood Staph Coagulase Negative 02/28/17 17:24 Gram Stain - Final Other - Eswab Laboratory Results 03/03/17 03:30 03/04/17 03:55 03/03/17 03/04/17 03/05/17 05:59 05:59 05:59 Intake Total 969 052 9952 Output Total 250 800 Balance 615 -150 1000 Ertapenem # 4 Operative cultures with growth of Haemophilus parainfluenza Blood cultures 1/2 sets coagulase-negative Staphylococcus - Physical Exam General Appearance: alert, no apparent distress EENT: No scleral icterus, No thrush, No conjunctival petechiae Respiratory: lungs clear, No respiratory distress Cardiac/Chest: regular rate, rhythm Extremities: inflammation (Left hand with residual edema dorsally; clean based incisions on palmar aspect; pain and decreased ability to fully flex or extend digits, no purulence) Abdomen: non-tender, No distended ICD10 Worksheet Patient Problems: Problems Problem Status Onset Flexor tenosynovitis of finger Acute
[2017-03-04] MEDS: METHOCARBAMOL 750 MG TAB PO PRN (21:50)
[2017-03-05 06:32] LABS: ANION GAP 10 mEq/L (8-16); CALCIUM 8.4 mg/dL (8.5-10.4); CARBON DIOXIDE 27 mEq/l (22-31); CHLORIDE 106 mEq/L (97-110); CREATININE 0.6 mg/dL (0.6-1.0); GLOMERULAR FILTRATION RATE > 60; GLUCOSE 93 mg/dL (70-100); POTASSIUM 4.5 mEq/L (3.5-5.2); SODIUM 143 mEq/L (134-144)
[2017-03-05] MEDS: KETOROLAC 15 MG/1 ML SDV IVP PRN ×2 (09:12→22:20)
[2017-03-05] MEDS: GABAPENTIN 300 MG CAP PO SCH ×3 (09:12→22:07)
[2017-03-05] MEDS: SENNOSIDES/DOCUSATE SODIUM TAB PO SCH ×2 (09:12→22:07)
[2017-03-05] MEDS: MULTIVITAMINS 1 EACH TAB PO SCH (09:12)
[2017-03-05] MEDS: CETIRIZINE 10 MG TAB PO SCH (09:12)
--- NOTE | 2017-03-05 09:37 | SOAPPROG ---
SOAP Progress Note Assessment/Plan: Assessment: Improving. Infectious process in left hand is improved significantly. Plan:IV abx convert to Oral Abx per ID PT for aggressive hand rehab. OK to D/C to organized rehab and F/U as outpatient. 02/28/17 17:02 02/28/17 18:26 02/28/17 18:28 03/02/17 10:10 03/05/17 09:37 Subjective: A lot less pain. Slept well. Objective: Vital Signs Temp Pulse Resp BP Pulse Ox 37.4 C 66 16 106/81 H 92 03/05/17 07:35 03/05/17 07:35 03/05/17 07:35 03/05/17 07:35 03/05/17 07:35 Microbiology 02/28/17 12:03 Blood Panel (PCR) - Final Blood Staph Coagulase Negative 02/28/17 17:24 Gram Stain - Final Other - Eswab Laboratory Results 03/03/17 03:30 03/05/17 Unknown 03/04/17 03/05/17 03/06/17 05:59 05:59 05:59 Intake Total 650 2000 Output Total 800 Balance -150 2000 AF Left hand: Wounds CDI, no drainage. ROM improved No tenderness along III flexor tendon sheath CSM I all left hand digits ICD10 Worksheet Patient Problems: Problems Problem Status Onset Flexor tenosynovitis of finger Acute
[2017-03-05] MEDS: AMPICILLIN/SULBACTAM 3 GM in NS 100 ML IV SCH ×3 (12:35→23:42)
--- NOTE | 2017-03-05 15:09 | ASMTCMCOM ---
CM Note CM Note Notes: Left a message for patient's therapist with [facility], Kailey Chantal @ [phone]. Awaiting her return call. CM will follow. Date Signed: 03/05/2017 03:09 PM Electronically Signed By:Nadia Dempsey LCSW
--- NOTE | 2017-03-05 15:12 | HOSPPROG ---
Hospitalist Progress Note Assessment/Plan: # L 3rd finger tenosynovitis s/p I&D with infection extending to carpal tunnel - she had injected heroin into this hand recently - haemophilus parainfluenza from operative cx - cont abx per ID, unasyn; plan to change to moxifloxacin likely tomorrow - pain control with NSAIDs and APAP # BCx+ with coag-neg staph - contaminant # recent IVDU - she initially requested this be kept quiet, but has now informed her father - no severe w/d, cont clonidine, add robaxin prn for myalgias # KIM - better today; safe for toradol # hypernatremia - resolved Subjective: no diarrhea; hand less painful; seen with her father and Dr Dyer Objective: Vital Signs Temp Pulse Resp BP Pulse Ox 36.8 C 90 16 105/67 93 03/05/17 11:47 03/05/17 11:47 03/05/17 11:47 03/05/17 11:47 03/05/17 11:47 Microbiology 02/28/17 17:24 Gram Stain - Final Other - Eswab 02/28/17 12:03 Blood Panel (PCR) - Final Blood Staph Coagulase Negative Laboratory Results 03/03/17 03:30 03/05/17 Unknown 03/04/17 03/05/17 03/06/17 05:59 05:59 05:59 Intake Total 650 2000 Output Total 800 Balance -150 1999 - Physical Exam Constitutional: no apparent distress, appears nourished Musculoskeletal: other (L hand with improved ROM; still edematous, no significant erythema) ICD10 Worksheet Patient Problems: Problems Problem Status Onset Flexor tenosynovitis of finger Acute
[2017-03-05] MEDS: ACETAMINOPHEN 500 MG TAB PO PRN (17:38)
--- NOTE | 2017-03-05 17:40 | PCMIDPN ---
Assessment/Plan: Assessment/Plan: * Left hand cellulitis/palmar abscess with flexor tenosynovitis status post incision and drainage: Continued clinical improvement. Think she will benefit from additional 24 hours of IV antibiotics with current administration of Unasyn. Likely transition to oral moxifloxacin for 2 weeks tomorrow with subsequent outpatient follow-up. Side effects of moxifloxacin including potential for tendinopathy or C difficile colitis discussed. Follow-up appointment next week scheduled and placed in discharge plan. * Vaccine: Plan flu vaccine prior to discharge. * Positive blood cultures: 1/2 sets with coagulase-negative Staph consistent with contamination. 03/05/17 17:38 03/05/17 17:39 Subjective: Patient with less left hand pain and improved range of motion of digits. Objective: Vital Signs Temp Pulse Resp BP Pulse Ox 97.8 C H 81 16 108/72 94 03/05/17 16:00 03/05/17 16:00 03/05/17 16:00 03/05/17 16:00 03/05/17 16:00 Microbiology 02/28/17 17:24 Gram Stain - Final Other - Eswab 02/28/17 12:03 Blood Panel (PCR) - Final Blood Staph Coagulase Negative Laboratory Results 03/03/17 03:30 03/05/17 Unknown 03/04/17 03/05/17 03/06/17 05:59 05:59 05:59 Intake Total 650 2000 Output Total 800 Balance -150 2000 Unasyn # 1 Antibiotics # 5 Hand cultures with growth of Haemophilus parainfluenza Blood cultures 1/2 sets coagulase-negative Staphylococcus - Physical Exam General Appearance: alert, no apparent distress Extremities: inflammation (Left hand with residual edema but decreasing with time; improved flexion and extension of digits but not fully recovered; incisions are all clean without purulence or erythema; no wrist tenderness) ICD10 Worksheet Patient Problems: Problems Problem Status Onset Flexor tenosynovitis of finger Acute
[2017-03-06] MEDS: AMPICILLIN/SULBACTAM 3 GM in NS 100 ML IV SCH ×2 (05:37→12:27)
[2017-03-06] MEDS: ACETAMINOPHEN 500 MG TAB PO PRN (06:44)
[2017-03-06] MEDS: METHOCARBAMOL 750 MG TAB PO PRN (06:44)
--- NOTE | 2017-03-06 07:49 | SOAPPROG ---
SOAP Progress Note Assessment/Plan: Assessment/Plan: Left hand III finger tenosynovitis, palmar and carpal tunnel abscess s/p I&D of L III flexor tendon sheath, palm and carpal tunnel, POD#6 Continue abx per ID as ordered, cultures reveal H. influenza Continue current pain management, encourage PO as tolerated Continue to encourage ice and elevation Continue PT/OT, encourage ROM D/c dependent on [employer] consultant ID approval and medicine approval, ID abx recommendation, and CM placement f/u w/ Dr. Javier 10-14 days post operatively Subjective: Pt states that her left hand is feeling better today and her pain is controlled. She is tolerating her diet and medications well. She denies any valle , sob, cp, f/c/n/v, abd pain, post calf pain bilat, or any new onset n/t. Ortho Stable Objective: Vital Signs Temp Pulse Resp BP Pulse Ox 36.6 C 64 14 112/67 93 03/06/17 04:00 03/06/17 04:00 03/06/17 04:00 03/06/17 04:00 03/06/17 04:00 Microbiology 02/28/17 12:03 Blood Culture - Final Blood Staphylococcus Sp Coag Neg Blood Panel (PCR) - Final Staph Coagulase Negative 02/28/17 11:37 Blood Culture - Final Blood 02/28/17 17:24 Gram Stain - Final Other - Eswab Laboratory Results 03/03/17 03:30 03/05/17 Unknown 03/05/17 03/06/17 03/07/17 05:59 05:59 05:59 Intake Total 1999 1540 Balance 1999 1540 Physical exam of the LUE reveals CDI dressings. Intact sutures are noted, surgical incision sites: no surrounding erythema, calor, discharge or induration noted. Forearm compartment are supple. Upper arm compartments supple. Pt is limited in light composite fist formation, but is able to flex and ext wrist without significant pain. DNVI BLE. ICD10 Worksheet Patient Problems: Problems Problem Status Onset Flexor tenosynovitis of finger Acute
[2017-03-06 08:31] VITALS: RESP 16
[2017-03-06] MEDS: MULTIVITAMINS 1 EACH TAB PO SCH (08:54)
[2017-03-06] MEDS: KETOROLAC 15 MG/1 ML SDV IVP PRN (08:54)
[2017-03-06] MEDS: CETIRIZINE 10 MG TAB PO SCH (08:54)
[2017-03-06] MEDS: GABAPENTIN 300 MG CAP PO SCH (08:54)
[2017-03-06] MEDS: SENNOSIDES/DOCUSATE SODIUM TAB PO SCH (08:55)
--- NOTE | 2017-03-06 11:30 | GDS ---
[f rep st] DISCHARGE SUMMARY ALL CONSULTATIONS: 1. Hand Surgery, Dr. Javier. 2. Infectious Disease. ALL DIAGNOSES: 1. Left 3rd finger tenosynovitis. 2. Recent IV drug use. 3. Acute kidney injury, mild. 4. Hypernatremia. ALL PROCEDURES: I and D of left 3rd finger showing septic flexor tendon tenosynovitis extending to t he carpal tunnel. IMPORTANT MICROBIOLOGY: 1. Haemophilus parainfluenza from operative cultures. 2. Coag-negative staph positive blood culture, likely contaminant. HOSPITAL COURSE: A 42-year-old female with a history of IV drug use presented with left 3rd finger t enosynovitis. She had been licking her needles and had injected heroin into that hand. She was I an d D's by Dr. Javier. Operative cultures grew out Haemophilus influenza, likely due to oral marcy conta mination. She has been continued on antibiotics here, most recently on intravenous Unasyn. She has been seen by Infectious Disease as well. The day of discharge, she will be changed to p.o. moxifloxa hector to complete a course of antibiotics. She will follow up with Dr. Javier early next week and Dr. Renaldo ortega on 03/12. She has been given strict return precautions. She has been given warnings on side affe cts of moxifloxacin and adverse reactions. She has been in rehab previously for substance abuse problems. She initially requested that her reha b not be notified and her dad not be notified about her relapse. However, she did inform them of thi s. They are very supportive. She is on clonidine for anxiety and gabapentin as well. She will cont inue her outpatient treatment for this. BILLING: I spent more than 30 minutes on the day of discharge coordinating care. /[id number]
[2017-03-06 12:17] VITALS: BP 118/82; PULSE 63; TEMP 98.4; O2SAT 93
[2017-03-06] MEDS ORDERED: FLU VACC QS 2017-18 (3YR+)/PF 0.5 ML SYR (FLUARIX QUAD) IM ONE (14:30)
--- NOTE | 2017-03-06 14:45 | ASDISCHSUM ---
Discharge Information Plan Status:Home with No Needs Medically Cleared to Leave: Discharge Date:03/06/2017 02:38 PM CM D/C Disposition:Home, Routine, Self-Care ADT D/C Disposition:Home, Routine, Self-Care Projected Discharge Date:03/06/2017 02:38 PM Transportation at D/C:Family Discharge Delay Reason: Follow-Up Date:03/06/2017 02:38 PM Discharge Slot: Final Diagnosis: Placement Information Patient Contact Information Contact Name:MAYA Relationship:Mother Address: Work Phone: City: [facility] Phone: State/Zip Code: Email: Financial Information Financial Class: Primary Plan Desc:[employer] [place] [place] Primary Plan Number:[id number] Secondary Plan Desc: Secondary Plan Number: Assessment Information [facility] CM Progress Note CM Note CM Note Notes: Pt had I & D of hand, likely requiring usp antibiotics. Pt uses IV drugs so is not safe to d/c to the community. Chart review indicates pt is in a drug rehabilitation program paid for by parents (at this time unknown which program), is a person diagnosed w depression and anxiety, is new to [place] and works at [employer]. Spoke w pt about d/c options (father was present w pt permission) and pt seems hesitant to commit to 30 day SNF stay but will consider it. CM will follow up with pt tomorrow. Medicaid SNF will require ULTC and unknown if [facility] will approve a Medicaid SNF solely for IV antibiotic need, pt has no therapy ordered. D/c plan of care: TBD based off how long pt requires IV antibiotics, willingness to commit to 30 day SNF, and if [facility] approves Medicaid SNF. Date Signed: 03/01/2017 04:38 PM Electronically Signed By:NAVEEN Collins [facility] CM Progress Note CM Note CM Note Notes: Cultures need to mature and according to MYRA Cates there is a chance pt can d/c on oral antibiotics. D/c plan of care: TBD based on final antibiotic need. If can d/c on orals then can d/c to community and if IV antibiotics then CM needs to start Medicaid SNF process. Date Signed: 03/02/2017 01:49 PM Electronically Signed By:NAVEEN Collins [facility] CM Progress Note CM Note CM Note Notes: Pt has signed release for [facility] Addiction treatment , LOBO Retana states [facility] needs a call prior to d/c as they are assessing if pt can return due to relapse. CM to follow. Date Signed: 03/02/2017 04:26 PM Electronically Signed By:NAVEEN Collins [facility] CM Progress Note CM Note CM Note Notes: Spoke with Dr. West with [facility]. Dr. West has spoken with patient's parents who are willing to help patient return to her rehab program. However, patient's therapist has to visit and determine if patient herself is ready to recommit. The current d/c plan is for patient to return to [facility] to restart her rehab program from the relapse. Kailey will contact me after she has completed her assessment to confirm. CM will follow. Date Signed: 03/04/2017 04:29 PM Electronically Signed By:Nadia Dempsey LCSW [facility] CM Progress Note CM Note CM Note Notes: Left a message for patient's therapist with [facility], Kailey Cornejo @ [phone]. Awaiting her return call. CM will follow. Date Signed: 03/05/2017 03:09 PM Electronically Signed By:Nadia Dempsey LCSW Case Management Discharge Plan Note Case Management Discharge Discharge Order Complete? Answers: Yes Patient to Obtain Answers: Independently Medications Transportation Arranged Answers: Family/Friends Family Notified Answers: Yes Notes: father Discharge Comments Notes: Patient will discharge to the care of her father who is transporting her back to [facility] for substance abuse treatment. I spoke with patient's father who has been in touch with [facility]. Liasons from [facility] have been in touch with patient at [facility], as well. LOBO Donaldson will go over discharge instructions with patient and her father. Date Signed: 03/06/2017 11:37 AM Electronically Signed By:Vivian Patino RN Intervention Information
== END 2017-03-06 14:38 | disposition home or self-care (01) | DRG 506 ==
LOC: CED 09:28 → CEDHOLD 10:09 → F3N 13:37
PROVIDERS: ADMIT Internal Medicine; ATTEND Internal Medicine
PROC: 02HV33Z Insertion of Infusion Device into Superior Vena Cava, Percutaneous Approach (ICD-10-PCS; 2017-02-28)
PROC: 0L980ZZ Drainage of Left Hand Tendon, Open Approach (ICD-10-PCS; principal; 2017-02-28 16:00)
PROC: 0R9 Upper Joints, Drainage (ICD-10-PCS; principal; 2017-02-28 16:00)
PROC: 0M980ZZ Drainage of Left Hand Bursa and Ligament, Open Approach (ICD-10-PCS; principal; 2017-02-28 16:00)
DX: M65.842 Other synovitis and tenosynovitis, left hand (principal); N17.9 Acute kidney failure, unspecified; E87.0 Hyperosmolality and hypernatremia; F11.10 Opioid abuse, uncomplicated; B96.3 Hemophilus influenzae [H. influenzae] as the cause of diseases classified elsewhere; Z72.0 Tobacco use; Z23 Encounter for immunization
CPT/HCPCS: 80048-PO; 80076-PO; 80307; 85025-PO; 97110-GO; 97161-GP; 97165-GO; 97535-GO; C1751; G0008; G0472; G0480; J0295; J1100; J1335; J1885; J2250; J2405; J2704; J2997; J3010; J3370

== ENCOUNTER 2017-12-01 12:55 | Emergency (ER) | payer MEDICAID ==
[2017-12-01] MEDS ORDERED: IPRATROPIUM/ALBUTEROL 3 ML DEYVIAL IH ONE (13:27)
--- NOTE | 2017-12-01 14:15 | EDPHY ---
H & P Time Seen by Provider: 12/01/17 13:05 HPI/ROS: CHIEF COMPLAINT: Sore throat HISTORY OF PRESENT ILLNESS: Patient states she has had sore throat, cough, congestion, sinus pressure and left ear pain for about 5 days. She states multiple people at work ill with similar symptoms. She denies fevers, rashes, vomiting. No significant headache or abdominal pain. No chest pain or shortness of breath. Has not tried any wzhl-kcb-crormee medications. Is a smoker. REVIEW OF SYSTEMS: Negative except per HPI. General Appearance: Alert, no distress. Eyes: Pupils equal and round no icterus HEENT: TMs normal bilaterally. Some lymphadenopathy in the cervical nodes. Oropharynx slight erythema but no exudate or swelling. Status post tonsillectomy. Respiratory: No respiratory distress. Lungs clear to auscultation bilaterally. Neurological: Awake, alert, no focal deficits. Skin: Warm and dry, no rashes. Musculoskeletal: Neck is supple nontender. Extremities are symmetrical, full range of motion, no edema. Psychiatric: Patient is oriented X 3, there is no agitation. Medical/surgical history: History IV drug use none for 9 months. Anxiety depression. Hernia surgery. Seasonal allergies. Social history: Does still smoke cigarettes. Smoking Status: Heavy smoker Constitutional: Initial Vital Signs Temperature (C) 37.2 C 12/01/17 13:05 Heart Rate 79 12/01/17 13:05 Respiratory Rate 18 12/01/17 13:05 Blood Pressure 103/87 H 12/01/17 13:05 O2 Sat (%) 95 12/01/17 13:05 O2 Delivery Mode Room Air Allergies/Adverse Reactions: No Known Allergies Allergy (Verified 12/01/17 13:03) Home Medications: Medication Instructions Recorded Ibuprofen [Motrin (*)] 800 mg PO TID PRN 02/28/17 Loratadine [Claritin 10 mg] 10 mg PO DAILY 02/28/17 Multivitamins [Multivitamin (*)] 1 each PO DAILY 02/28/17 Rizatriptan Benzoate [Maxalt] 5 mg PO DAILY PRN 02/28/17 traZODone [traZODone 150MG (*)] 150 mg PO HS 02/28/17 Gabapentin [Neurontin] 600 mg PO TID #90 tablet 03/06/17 PARoxetine HCL [Paxil 30mg (*)] 30 mg PO HS #30 tab 03/06/17 clonIDINE [Catapres (*)] 0.1 mg PO TID PRN #30 tab 03/06/17 Albuterol [Proventil Inhaler HFA 1 - 2 puffs IH Q4H #1 mdi 12/01/17 (*)] Buspar (*) 12/01/17 Gabapentin 12/01/17 Medical Decision Making Differential Diagnosis: Differential diagnosis includes but is not limited to sinusitis, ear infection, strep pharyngitis, upper respiratory infection. After evaluation no signs or concerns of bacterial infection. Did get some relief with albuterol for the cough and bronchitis symptoms. Discussed aqdg-xuc-illlssb medications in conservative treatments such as nasal saline wash and gargles. Return precautions discussed. Stable for discharge. - Data Points Medications Given: Discontinued Medications Albuterol/Ipratropium (Duoneb) 3 ml IH EDNOW ONE Stop: 12/01/17 13:28 Last Admin: 12/01/17 13:44 Dose: 3 ml Departure - Departure Disposition: Home, Routine, Self-Care Clinical Impression: Acute upper respiratory infection Condition: Good Instructions: Upper Respiratory Infection (ED) Additional Instructions: Use qwwv-itt-rdsimea medications like Sudafed for symptoms. Also due to the saline nasal wash and gargles as discussed. Ibuprofen and Tylenol for pain. Stay well hydrated and rest as much as possible. If you develops fever, worse pain in your chest, face, throat or other concerning new symptoms please return to the emergency department for recheck. Referrals: NONE *PRIMARY CARE P,. [Primary Care Provider] - As per Instructions Stand Alone Forms: Work Excuse Prescriptions: Albuterol [Proventil Inhaler HFA (*)] 1 - 2 puffs IH Q4H #1 mdi
[2017-12-01 14:25] VITALS: BP 110/83
== END 2017-12-01 14:25 | disposition home or self-care (01) ==
LOC: CED 12:58
DX: J06.9 Acute upper respiratory infection, unspecified (principal); F17.210 Nicotine dependence, cigarettes, uncomplicated